=== PATIENT | female | born 1985 | race Native Hawaiian/Other Pacific Islander ===

== ENCOUNTER → 2017-02-26 | Outpatient (REF) | payer OTHER ==
[2017-02-26 13:32] LABS: ALBUMIN 2.7 GM/DL (3.2-5.2); ALBUMIN/GLOBULIN RATIO 0.71 (1.00-1.93); ALKALINE PHOSPHATASE 98 U/L (45-117); ALT/SGPT 26 U/L (12-78); ANION GAP 10 MEQ/L (8-16); AST/SGOT 18 U/L (15-37); BILIRUBIN,TOTAL 0.2 MG/DL (0.2-1.0); BLOOD UREA NITROGEN 7 MG/DL (7-18); CALCIUM LEVEL 8.6 MG/DL (8.5-10.1); CARBON DIOXIDE LEVEL 24 MEQ/L (21-32); CHLORIDE LEVEL 105 MEQ/L (98-107); CREATININE FOR GFR 0.55 MG/DL (0.55-1.02); GLOMERULAR FILTRATION RATE > 60.0 (>60); GLUCOSE, FASTING 128 MG/DL (70-105); POTASSIUM SERUM 3.7 MEQ/L (3.5-5.1); SODIUM LEVEL 139 MEQ/L (136-145); TOTAL PROTEIN 6.5 GM/DL (6.4-8.2)
[2017-02-26 13:34] LABS: MEAN CORPUSCULAR HEMOGLOBIN 30.9 pg (27.0-33.0); MEAN CORPUSCULAR HGB CONC 33.3 g/dl (32.0-36.5); MEAN CORPUSCULAR VOLUME 92.7 fl (80.0-96.0); RED CELL DISTRIBUTION WIDTH 13.3 % (11.5-14.5); WHITE BLOOD COUNT 11.7 K/mm3 (4.0-10.0)
== END ==
LOC: M LAB REF 12:25
PROVIDERS: ATTEND Nurse Practitioner Family
DX: Z13.29 Encounter for screening for other suspected endocrine disorder (principal); Z11.4 Encounter for screening for human immunodeficiency virus [HIV]; Z13.0 Encounter for screening for diseases of the blood and blood-forming organs and certain disorders involving the immune mechanism

== ENCOUNTER → 2017-03-01 | Outpatient (CLI) | payer OTHER ==
[2017-03-01 12:59] LABS: MEAN CORPUSCULAR HGB CONC 34.2 g/dl (32.0-36.5); MEAN CORPUSCULAR VOLUME 93.4 fl (80.0-96.0); RED CELL DISTRIBUTION WIDTH 13.2 % (11.5-14.5); WHITE BLOOD COUNT 11.8 K/mm3 (4.0-10.0)
--- NOTE | 2017-03-01 20:19 | REP ---
Clinical: Anatomical evaluation. Comparison: 09/15/2016 . Findings: Examination demonstrates a single live intrauterine in cephalic presentation. motion is identified by technologist. Placenta is noted posterior left lateral and grade zero without evidence for placenta previa or abruption. Amniotic fluid volume is normal. Cervix measures 4.1 cm in length and appears closed. No evidence for nuchal cord. Gestational age by LMP 31 weeks 1 day with OLIVIA 05/02/1969 . Gestational age by current measurements 32 weeks 3 days with OLIVIA 04/23/2017 . FHR equals 144 beats per minute. BPD 8.2 cm 33 weeks 1 day HC 29.9 cm 33 weeks 1 day AC 29.2 cm 33 weeks 1 day FL 6.0 cm 31 weeks 2 day HL 5.3 cm 30 weeks 5-day HC/AC ratio 1.02 Estimated weight 2011 grams ( 75th percentile). Amniotic fluid index equals 15.9 cm. Umbilical cord SD ratio equals 1.90 (3.30 - 4.70). Anatomical assessment demonstrates normal structures including cranium, choroid plexus, cavum, cerebellum/posterior fossa, facial features, lungs, four-chamber heart/ventricular outflow tracts, diaphragm, stomach, cord insertion/three-vessel cord, kidneys/bladder, spine, and extremities. Impression: 1. Single live intrauterine in cephalic presentation demonstrating appropriate interval growth. 2. Anatomical assessment is complete and normal. Signed by Sachin Styles MD 03/01/2017 04:20 P
== END ==
LOC: M LAB 11:01
PROVIDERS: ATTEND Advanced Practice Midwife
DX: Z34.03 Encounter for supervision of normal first pregnancy, third trimester (principal); Z3A.32 32 weeks gestation of pregnancy

== ENCOUNTER → 2017-03-08 | Outpatient (CLI) | payer OTHER | LOC: M LAB 07:15 | PROVIDERS: ATTEND Obstetrics & Gynecology | DX: R73.02 Impaired glucose tolerance (oral) (principal) ==

== ENCOUNTER → 2017-03-13 | Outpatient (REF) | payer OTHER ==
[2017-03-14 09:54] LABS: HEP C VIRUS AB SCREEN MEDICARE < 0.0 INDEX (<0.8)
== END ==
LOC: M LAB REF 13:27
PROVIDERS: ATTEND Advanced Practice Midwife
DX: Z34.03 Encounter for supervision of normal first pregnancy, third trimester (principal)

== ENCOUNTER 2017-05-07 04:42 | Inpatient (IN) | payer MEDICAID, OTHER ==
[~2017-05-07] VITALS: Ht 144.8 cm; Wt 60.0 kg
[2017-05-07] VITALS (58 sets, daily range): BP systolic 85–160; BP diastolic 50–135
[2017-05-07] MEDS ORDERED: LACTATED RINGER'S 1000 ML IV STA (05:33)
[2017-05-07] MEDS ORDERED: PENICILLIN G POTASSIUM IV 5 MU in D5W MINI-BAG PLUS 100 ML IV STA (05:33)
[2017-05-07] MEDS ORDERED: PROMETHAZINE INJ 25 MG/ML VIAL (J2550) IV ONE (05:45)
[2017-05-07] MEDS ORDERED: BUTORPHANOL 2 MG/ML INJ (J0595) IV ONE (05:45)
--- NOTE | 2017-05-07 06:19 | HPE ---
DATE OF ADMISSION: 05/07/2017 31-year-old, 1, patient of [facility], estimated date of delivery 05/02/2017, presents at 40 weeks 5 days with complaints of leaking fluid starting of 0300 hours with onset of contractions. Denies bleeding. Fetus is active. Last normal menstrual period unknown. Sono at 7 weeks confirmed her date. Normal anatomy scan. complicated by poor compliance with care. Began care with Layne BANKS for two visits, then had no care from 16- 30 weeks when she then transferred to [facility]. NO KNOWN DRUG ALLERGIES. Medical-surgical is noncontributory. Family is noncontributory. SOCIAL: . Father of the baby present and supportive. Denies tobacco, alcohol, drugs or abuse. OBJECTIVE: Prepregnancy weight 128, total weight gain 25 pounds. B+, antibody negative. Pap within normal limits 2013. Rubella immune. VDRL, hepatitis B, hepatitis C, HIV, gonorrhea, Chlamydia all negative. Cystic fibrosis screen negative. 1-hour glucose 144. 3-hour was 84, 161, 94 and 129. Group B strep is positive. Vital signs are stable. She appears uncomfortable. Abdomen is soft, gravid, longitudinal lie. Uterine contractions 2-4 minutes apart times 60 seconds. heart 140, moderate variability with accelerations. Small amount of clear fluid at the introitus. Positive Nitrazine. Negative fern. Sterile vaginal exam: 5 cm, 90% effaced, minus 2 and a bulging bag of water. ASSESSMENT: Primipara, at term, active labor, category 1 tracing. PLAN: Admit. Patient is considering epidural versus IV pain medications. Anticipate normal spontaneous vaginal . MTDD
[2017-05-07 06:29] LABS: MEAN CORPUSCULAR HEMOGLOBIN 32.2 pg (27.0-33.0); MEAN CORPUSCULAR HGB CONC 34.6 g/dl (32.0-36.5); MEAN CORPUSCULAR VOLUME 93.1 fl (80.0-96.0); RED CELL DISTRIBUTION WIDTH 13.4 % (11.5-14.5); WHITE BLOOD COUNT 9.7 K/mm3 (4.0-10.0)
[2017-05-07] MEDS: LR 1,000 ML IV SCH ×4 (06:40→18:39)
[2017-05-07] MEDS ORDERED: OXYTOCIN 30 UNITS IN 0.9% NaCl 500ML IV BAG (J2590) As Ordered ONE (09:45)
[2017-05-07] MEDS: PENICILLIN G POTASSIUM IV 2.5 MU in D5W 100 ML IV SCH ×2 (09:49→13:51)
[2017-05-07] MEDS ORDERED: FENTANYL 2MCG/ML ROPIVACAINE 0.2% IN 0.9% NACL 200ML IVBAG As Ordered ONE (09:52)
[2017-05-07] MEDS ORDERED: OXYTOCIN DRIP 30 UNITS in APPROPRIATE DILUENT 1 EA IV SCH (10:00)
[2017-05-07] MEDS ORDERED: REFRIGERATOR IV KEYS XX PRN (12:00)
[2017-05-07] MEDS ORDERED: LACTATED RINGER'S 1000 ML IV PRN (12:00)
[2017-05-07] MEDS ORDERED: EPIDURAL/PCA KEYS XX PRN (12:00)
[2017-05-07] MEDS ORDERED: ONDANSETRON 4MG/2ML VIAL (J2405) IV PRN ×3 (12:00→19:15)
[2017-05-07] MEDS ORDERED: NALOXONE INJ 0.4 MG/1 ML VIAL (J2310) IV PRN (12:00)
[2017-05-07] MEDS ORDERED: FENTANYL/ROPIVACAINE/NACL BAG 200 ML EPIDURAL SCH (12:00)
[2017-05-07] MEDS ORDERED: EPIDURAL COMMENT XX SCH (12:00)
[2017-05-07] MEDS ORDERED: diphenhydrAMINE INJ 50MG/ML VIAL (J1200) IV PRN (12:00)
[2017-05-07] MEDS: ePHEDrine SULFATE 25 MG/5 ML(5MG/ML) SYRINGE IV PRN ×3 (12:01→14:23)
[2017-05-07] MEDS ORDERED: BICITRA 30ML SOLN UDC As Ordered ONE (17:21)
[2017-05-07] MEDS ORDERED: ceFAZolin 2 GM/D5W 50 ML IV BAG (J0690) As Ordered ONE (17:21)
[2017-05-07] MEDS ORDERED: BICITRA 30ML SOLN UDC PO ONE (17:30)
[2017-05-07] MEDS ORDERED: ONDANSETRON 4MG/2ML VIAL (J2405) As Ordered ONE (17:55)
[2017-05-07] MEDS ORDERED: KETOROLAC 60 MG/2 ML VIAL (J1885) As Ordered ONE (17:55)
[2017-05-07] MEDS ORDERED: OXYTOCIN INJ 10 UNITS/ML VIAL (J2590) As Ordered ONE (17:55)
[2017-05-07] MEDS ORDERED: MORPHINE PRES-FREE INJ 10 MG/10 ML VIAL (J2274) As Ordered ONE (17:55)
[2017-05-07] MEDS ORDERED: SODIUM BICARBONATE 8.4% INJ 50 ML SYRINGE As Ordered ONE (17:56)
[2017-05-07 18:40] LABS: CORD GAS ABE A 0.9; CORD GAS HCO3 A 27.8 MEQ/L; CORD GAS PCO2 A 52.9 mmHg; CORD GAS PH A 7.338 UNITS; CORD GAS PO2 A 18.9 mmHg; CORD GAS SBC A 23.8 MEQ/L; CORD GAS TCO2 A 29.4 MEQ/L
[2017-05-07 18:42] LABS: CORD GAS ABE V -2.3; CORD GAS HCO3 V 23.1 MEQ/L; CORD GAS O2 SAT V 73.9 %; CORD GAS PH V 7.359 UNITS; CORD GAS PO2 V 31.8 mmHg; CORD GAS TCO2 V 24.4 MEQ/L
[2017-05-07] MEDS ORDERED: MEASLES,MUMPS,RUBELLA VACCINE INJ (MMR-II) (90707) SC SCH (18:45)
[2017-05-07] MEDS ORDERED: NORCO, ANEXSIA 5/325MG TABLET (HYDROcodone/ACETAMINOPHEN) PO PRN (18:45)
[2017-05-07] MEDS ORDERED: MOM 30ML SUSPENSION UDC PO PRN (18:45)
[2017-05-07] MEDS ORDERED: RHOGAM 300 MCG (1500 IU) INJ (J2790) IM SCH (18:45)
[2017-05-07] MEDS ORDERED: KETOROLAC 30 MG/ML VIAL (J1885) IV PRN (19:15)
[2017-05-07] MEDS ORDERED: fentaNYL 100 MCG/2 ML INJECTION (J3010) IV PRN (19:15)
[2017-05-07] MEDS ORDERED: LR 1,000 ML IV SCH (19:15)
[2017-05-07] MEDS: DOCUSATE SODIUM 100 MG CAP PO SCH (22:07)
[2017-05-07] MEDS: NORCO, ANEXSIA 5/325MG TABLET (HYDROcodone/ACETAMINOPHEN) PO PRN (22:26)
[2017-05-08] MEDS: IBUPROFEN 800 MG TAB PO SCH ×3 (01:58→18:05)
[2017-05-08 02:04] VITALS: BP 114/62
[2017-05-08] MEDS: LR 1,000 ML IV SCH (02:39)
[2017-05-08 06:11] VITALS: BP 99/54
[2017-05-08 06:39] LABS: MEAN CORPUSCULAR HGB CONC 34.6 g/dl (32.0-36.5); MEAN CORPUSCULAR VOLUME 92.4 fl (80.0-96.0); RED CELL DISTRIBUTION WIDTH 13.5 % (11.5-14.5)
[2017-05-08] MEDS: DOCUSATE SODIUM 100 MG CAP PO SCH ×2 (08:36→21:15)
[2017-05-08] MEDS: PRENATAL VITAMINS CHEWABLE TABLET PO SCH (08:36)
--- NOTE | 2017-05-08 09:15 | RO ---
DATE OF PROCEDURE: 05/07/2017 PREOPERATIVE DIAGNOSES: 1. Term . 2. Arrest of descent. 3. Non-reassuring heart rate tracing. POSTOPERATIVE DIAGNOSES: 1. Term . 2. Arrest of descent. 3. Non-reassuring heart rate tracing. 4. scalp molding. PROCEDURE: Primary low transverse section. SURGEON: Jeovanny Lechuga DO TRADE PROMOTION ANALYST: Candido Estrada DO ANESTHESIA: Epidural. Lynnette is a 31-year-old female 1, para 0, who was admitted in active labor. She progressed to fully dilated and pushed for over 3 hours with epidural on board. She had an arrest of descent with a non-reassuring heart rate tracing. At this point, a decision was made to proceed with delivery via primary low transverse section. COMPLICATION: None. ESTIMATED BLOOD LOSS: 500 mL. FINDING: Live male in occiput transverse position. 9/9. weight 8 pounds 4 ounces. Normal appearing placenta and ovaries. DESCRIPTION OF PROCEDURE: After obtaining informed consent, patient was taken to the operating room where epidural anesthetic was found be adequate. She was then draped and prepped in usual sterile fashion in the supine position. At this point, a Pfannenstiel incision was made. The incision was carried down to the fascia. Fascia was incised in midline fashion and carried through laterally. Superior aspect of the fascia were then grasped with Adis clamps, tented off and dissected off the rectus muscles sharply. The inferior aspect was dissected off in a similar fashion. Rectus muscles midline fashion. Perineum identified. Peritoneal cavity entered bluntly. Superior and inferior dissection of the peritoneum was then done with good visualization of the bladder. At this point, a Mobius skin retractor was placed. A low-transverse uterine incision was made. was delivered in atraumatic fashion. Nose and mouth bulb suctioned. Cord doubly clamped and cut, and was handed over to the waiting warmer. Cord blood and cord gas were sent. Placenta removed manually. Uterus cleared of all clot and debris. Uterine incision was then repaired in two separate layers of #0 Vicryl sutures. Pelvis copiously irrigated with normal saline and suctioned out. Attention turned to the peritoneum, which was closed in a running fashion using #2-0 Vicryl. Fascia closed in two separate segment of #0 Vicryl sutures and the skin was reapproximated in subcuticular fashion using #3-0 Vicryl on a Salvador. Steri-Strips placed. Patient tolerated procedure well. She was then transferred to recovery room in stable condition.
[2017-05-08 10:00] VITALS: BP 99/52
[2017-05-08 14:00] VITALS: BP 105/56
[2017-05-08 18:04] VITALS: BP 119/68
[2017-05-08 22:37] VITALS: BP 127/60
[2017-05-09] MEDS: IBUPROFEN 800 MG TAB PO SCH ×3 (02:02→16:55)
[2017-05-09 06:00] VITALS: BP 117/66
[2017-05-09] MEDS: DOCUSATE SODIUM 100 MG CAP PO SCH ×2 (09:32→21:49)
[2017-05-09] MEDS: PRENATAL VITAMINS CHEWABLE TABLET PO SCH (09:33)
[2017-05-09] MEDS: NORCO, ANEXSIA 5/325MG TABLET (HYDROcodone/ACETAMINOPHEN) PO PRN ×4 (09:35→21:49)
--- NOTE | 2017-05-09 19:22 | IPNPDOC ---
Date Seen The patient was seen on 05/09/17 at 0915. Progress Note SUBJECTIVE: Patient reports her pain has been managed but she is sore. Reports getting out of bed and walking with some difficulty. States she is voiding. OBJECTIVE PHYSICAL EXAMINATION: VITAL SIGNS: Please see below. RESPIRATORY: Rate regular. No use of accessory muscles. ABDOMINAL: Low transverse incision is approximated, dry, and no new drainage noted. Slight bruising noted on mons pubis. Steri-strips present. PERINEUM: Scant amount of dark red lochia. EXTREMITIES: No edema noted. ASSESSMENT: Day 2 postoperative. PLAN: Continue supportive nursing care. Anticipate discharge to home tomorrow. VS, I&O, 24H, Fishbone Vital Signs/I&O Vital Signs Date Time Temp Pulse Resp B/P (MAP) Pulse Ox O2 Delivery O2 Flow Rate FiO2 05/09/17 16:55 20 05/09/17 06:00 98.4 78 117/66 (83) 05/08/17 18:04 99 Room Air Laboratory Data CBC/BMP Item Value Date Time White Blood Count 14.0 K/mm3 H 05/08/17626 Red Blood Count 3.42 M/mm3 L 05/08/17626 Hemoglobin 11.0 g/dl L # 05/08/17626 Hematocrit 31.6 % L 05/08/17626 Platelet Count 194 k/mm3 05/08/17626 BELLA VARELA CNM May 09, 2017 19:22
[2017-05-10] MEDS: IBUPROFEN 800 MG TAB PO SCH ×2 (02:13→08:33)
[2017-05-10] MEDS: NORCO, ANEXSIA 5/325MG TABLET (HYDROcodone/ACETAMINOPHEN) PO PRN (03:19)
[2017-05-10 05:45] VITALS: BP 118/74
[2017-05-10] MEDS: PRENATAL VITAMINS CHEWABLE TABLET PO SCH (08:32)
[2017-05-10] MEDS: DOCUSATE SODIUM 100 MG CAP PO SCH (08:32)
[2017-05-10] MEDS ORDERED: PRENTAB55 PO (09:09)
[2017-05-10] MEDS ORDERED: MOTR200T44 PO (09:09)
--- NOTE | 2017-05-14 19:23 | DS.PDOC ---
Discharge Summary General Date of Admission May 07, 2017 at 05:25 Date of Discharge May 10, 2017 Attending Physician: Jeovanny Lechuga DO Discharge Summary PROCEDURES PERFORMED DURING STAY: Primary low transverse section. ADMITTING DIAGNOSES: 1. IUP at 40 weeks 5 days gestation. 2. Spontaneous rupture of membranes. 3. Active labor at term. DISCHARGE DIAGNOSES: 1. Primary section. 2. Day 3 postoperative. COMPLICATIONS/CHIEF COMPLAINT: LABOR. HISTORY OF PRESENT ILLNESS: Patient is a 31-year-old female who is now a . Her had been complicated by a lack of care. She had no care from 16 weeks to 30 weeks gestation. She was admitted to labor and delivery on May 07 in active labor and with spontaneous ruptured membranes at 40 weeks 5 days gestation. The patient had a primary section for arrest of descent and nonreassuring status. DISCHARGE MEDICATIONS: Please see below. ALLERGIES: Please see below. PHYSICAL EXAMINATION ON DISCHARGE: VITAL SIGNS: Please see below. GENERAL: A and O 3. RESPIRATORY EXAMINATION: Regular rate. No use of accessory muscles. ABDOMINAL EXAMINATION: Low transverse abdominal incision is approximated so. Steri-Strips in place. No drainage noted. PERINEUM: Scant dark red lochia. EXTREMITIES: Generalized edema. No pitting. LABORATORY DATA: Please see below. ACTIVITY: As tolerated. DIET: Regular. DISCHARGE INSTRUCTIONS: 1. Patient to be discharged to home. Follow up in 2 weeks for incision check and 6 weeks .. 2. Education done on mastitis, breast care, endometritis, hemorrhage, DVT, pulmonary embolism, infection at the incision site, pelvic rest, signs and symptoms of depression, and pain management. Patient given discharge instruction list. DISCHARGE CONDITION: Stable. Vital Signs/I&Os Vital Signs Date Time Temp Pulse Resp B/P (MAP) Pulse Ox O2 Delivery O2 Flow Rate FiO2 05/10/17 05:45 98.7 72 18 118/74 (89) 05/08/17 18:04 99 Room Air Discharge Medications Scheduled Ibuprofen (Motrin Ib) 200 Mg Tab, 800 MG PO Q8HP, (Reported) Multivitamins/ ( 19) 1 Tab Tab, 1 TAB PO DAILY, (Reported) Allergies Coded Allergies: No Known Allergies (Unverified , 05/07/17) BELLA VARELA CNM May 14, 2017 19:08
== END 2017-05-10 10:30 | disposition home or self-care (01) | DRG 540 ==
LOC: M LDO 04:42 → M LDI 05:25 → M OBS 20:22
PROVIDERS: ADMIT Advanced Practice Midwife; ATTEND Obstetrics & Gynecology
PROC: 10D00Z1 Extraction of Products of Conception, Low, Open Approach (ICD-10-PCS; principal; 2017-05-07 09:43)
DX: O48.0 Post-term pregnancy (principal); Z3A.40 40 weeks gestation of pregnancy; O76 Abnormality in fetal heart rate and rhythm complicating labor and delivery; O62.8 Other abnormalities of forces of labor; O99.824 Streptococcus B carrier state complicating childbirth; O32.4XX0 Maternal care for high head at term, not applicable or unspecified; Z37.0 Single live birth

== ENCOUNTER → 2017-10-25 | Outpatient (REF) | payer SELFPAY ==
[~2017-10-25] MED LIST: MOTR200T44 PO; PRENTAB55 PO
[2017-10-25 17:35] LABS: BASO # 0.1 10^3/uL (0.0-0.2); BASO % 0.6 % (0.0-1.0); EOS # 0.1 10^3/uL (0.0-0.50); EOS % 1.2 % (0.0-3.0); IMMATURE GRANULOCYTE % 0.2 % (0-0); LYMPH # 2.1 10^3/uL (1.5-4.5); LYMPH % 25.4 % (24.0-44.0); MEAN CORPUSCULAR HEMOGLOBIN 28.7 pg (27.0-33.0); MEAN CORPUSCULAR HGB CONC 33.4 g/dl (32.0-36.5); MEAN CORPUSCULAR VOLUME 85.9 fl (80.0-96.0); MONO # 0.6 10^3/uL (0.0-0.8); MONO % 6.9 % (0.0-5.0); NEUTROPHILS # 5.4 10^3/uL (1.8-7.7); NEUTROPHILS % 65.7 % (36.0-66.0); PLATELET COUNT, AUTOMATED 327 10^3/uL (150-450); RED CELL DISTRIBUTION WIDTH 12.1 % (11.5-14.5); WHITE BLOOD COUNT 8.2 10^3/uL (4.0-10.0)
[2017-10-25 18:06] LABS: ALBUMIN 4.1 GM/DL (3.2-5.2); ALBUMIN/GLOBULIN RATIO 1.11 (1.00-1.93); ALKALINE PHOSPHATASE 67 U/L (45-117); ALT/SGPT 26 U/L (12-78); ANION GAP 10 MEQ/L (8-16); AST/SGOT 21 U/L (7-37); BILIRUBIN,TOTAL 0.5 MG/DL (0.2-1.0); BLOOD UREA NITROGEN 12 MG/DL (7-18); CALCIUM LEVEL 9.1 MG/DL (8.5-10.1); CARBON DIOXIDE LEVEL 25 MEQ/L (21-32); CHLORIDE LEVEL 107 MEQ/L (98-107); CREATININE FOR GFR 0.62 MG/DL (0.55-1.02); GLOMERULAR FILTRATION RATE > 60.0 (>60); GLUCOSE, FASTING 101 MG/DL (70-105); POTASSIUM SERUM 3.8 MEQ/L (3.5-5.1); SODIUM LEVEL 142 MEQ/L (136-145); TOTAL PROTEIN 7.8 GM/DL (6.4-8.2)
[2017-10-25 18:11] LABS: PLT CLUMPS? POS FLAG; POS COUNT POS FLAG
[2017-10-25 18:12] LABS: ADD MANUAL DIFFER NO; DIFF SLIDE NUMBER 285
[2017-10-25 18:17] LABS: FOLATE > 24.0 NG/ML; VITAMIN B12 LEVEL 821 PG/ML
== END ==
LOC: M LAB REF 16:37
PROVIDERS: ATTEND Nurse Practitioner Adult Health
DX: R20.2 Paresthesia of skin (principal)

== ENCOUNTER → 2018-01-03 | Outpatient (REF) | payer OTHER ==
[2018-01-03 13:38] LABS: BASO % 0.5 % (0.0-1.0); EOS # 0.1 10^3/uL (0.0-0.50); EOS % 1.5 % (0.0-3.0); HEMATOCRIT 43.7 % (36.0-47.0); HEMOGLOBIN 14.5 g/dl (12.0-16.0); IMMATURE GRANULOCYTE % 0.2 % (0-3.0); LYMPH # 1.8 10^3/uL (1.5-4.5); LYMPH % 20.7 % (24.0-44.0); MEAN CORPUSCULAR HEMOGLOBIN 28.8 pg (27.0-33.0); MEAN CORPUSCULAR HGB CONC 33.2 g/dl (32.0-36.5); MEAN CORPUSCULAR VOLUME 86.7 fl (80.0-96.0); MONO # 0.5 10^3/uL (0.0-0.8); MONO % 6.1 % (0.0-5.0); NEUTROPHILS # 6.2 10^3/uL (1.8-7.7); PLATELET COUNT, AUTOMATED 364 10^3/uL (150-450); RED BLOOD COUNT 5.04 10^6/uL (4.00-5.40); RED CELL DISTRIBUTION WIDTH 12.1 % (11.5-14.5); WHITE BLOOD COUNT 8.8 10^3/uL (4.0-10.0)
[2018-01-03 14:33] LABS: ALBUMIN 4.2 GM/DL (3.2-5.2); ALBUMIN/GLOBULIN RATIO 0.98 (1.00-1.93); ALKALINE PHOSPHATASE 87 U/L (45-117); ALT/SGPT 32 U/L (12-78); ANION GAP 8 MEQ/L (8-16); AST/SGOT 21 U/L (7-37); BILIRUBIN,TOTAL 0.6 MG/DL (0.2-1.0); BLOOD UREA NITROGEN 10 MG/DL (7-18); CALCIUM LEVEL 9.5 MG/DL (8.5-10.1); CARBON DIOXIDE LEVEL 29 MEQ/L (21-32); CHLORIDE LEVEL 101 MEQ/L (98-107); CREATININE FOR GFR 0.59 MG/DL (0.55-1.30); GLOMERULAR FILTRATION RATE > 60.0 (>60); GLUCOSE, FASTING 71 MG/DL (70-100); POTASSIUM SERUM 4.1 MEQ/L (3.5-5.1); RHEUMATOID FACTOR QUANT < 10.0 IU/ML (0-15.0); SODIUM LEVEL 138 MEQ/L (136-145); TOTAL PROTEIN 8.5 GM/DL (6.4-8.2)
[2018-01-03 14:36] LABS: ESTIMATED AVERAGE GLUCOSE 117 MG/DL (60-110); HEMOGLOBIN A1c 5.7 %
[2018-01-03 14:51] LABS: ERYTHROCYTE SEDIMENTATION RATE 12 mm/hr (0-20)
[2018-01-03 15:09] LABS: VITAMIN B12 LEVEL 865 PG/ML
[2018-01-03 15:10] LABS: FOLATE > 24.0 NG/ML
[2018-01-04 12:52] LABS: ALBUMIN 4.79 GM/DL (3.29-5.55); ALBUMIN % 56.3 % (55.8-66.1); ALPHA-1-GLOBULIN % 3.4 % (2.9-4.9); ALPHA-1-GLOBULINS 0.29 GM/DL (0.17-0.41); ALPHA-2-GLOBULINS 0.79 GM/DL (0.42-0.99); ALPHA-2-GLOBULINS % 9.3 % (7.1-11.8); BETA-1-GLOBULINS % 6.5 % (4.7-7.2); BETA-2-GLOBULINS % 6.1 % (3.2-6.5); GAMMA GLOBULIN % 18.4 % (11.1-18.8)
[2018-01-04 12:53] LABS: BETA-1-GLOBULINS 0.55 GM/DL (0.28-0.60); BETA-2-GLOBULINS 0.52 GM/DL (0.19-0.55); GAMMA GLOBULINS 1.56 GM/DL (0.65-1.58)
== END ==
LOC: M LABNEURO 11:05
DX: G62.9 Polyneuropathy, unspecified (principal)